=== PATIENT | female | born 1950 | race Caucasian/White ===

== ENCOUNTER 2022-11-05 08:48 | Outpatient (CLI) | payer MEDICARE, OTHER ==
[2022-11-05 12:20] LABS: BASOPHILS # (AUTO) 0.1 K/uL (0.0-0.2); BASOPHILS % (AUTO) 2.7 % (0.0-2.0); EOSINOPHILS % (AUTO) 1.2 % (0.0-6.0); HEMATOCRIT 36 % (33-45); LYMPHOCYTES # (AUTO) 1.2 K/uL (0.8-4.8); LYMPHOCYTES % (AUTO) 35.5 % (20.0-44.0); MEAN CORPUSCULAR HGB CONC 34 g/dl (31.0-36.0); MEAN CORPUSCULAR VOLUME 101 fL (82-100); MONOCYTES # (AUTO) 0.3 K/uL (0.1-1.30); MONOCYTES % (AUTO) 7.2 % (2.0-12.0); NEUTROPHILS # (AUTO) 1.9 K/uL (1.8-8.9); NEUTROPHILS % (AUTO) 53.4 % (43.0-81.0); PLATELET COUNT (AUTO) 182 K/uL (150-450); RED BLOOD CELL COUNT(AUTO) 3.54 MIL/uL (4.0-5.2); WHITE BLOOD COUNT (AUTO) 3.5 K/uL (4.3-11.0)
[2022-11-05 12:28] LABS: BILIRUBIN,URINE NEGATIVE (NEGATIVE); COLOR,URINE YELLOW (YELLOW); LEUKOCYTE ESTERASE ,URINE NEGATIVE (NEGATIVE); NITRITE, URINE NEGATIVE (NEGATIVE); PROTEIN,URINE NEGATIVE (NEGATIVE); UGLUCOSE NEGATIVE (NEGATIVE); UROBILINOGEN,URINE 0.2 EU/dL (0.2)
[2022-11-05 12:44] LABS: POTASSIUM 4.5 mmol/L (3.5-5.1)
[2022-11-07] MEDS ORDERED: PALB125T PO (12:38)
[2022-11-07] MEDS ORDERED: OLME20TA23 PO (12:38)
[2022-11-07] MEDS ORDERED: HYDR-3980 PO (12:38)
[2022-11-07] MEDS ORDERED: POTA20TA83 PO (12:38)
[2022-11-07] MEDS ORDERED: GABA800T11 PO (12:38)
[2022-11-07] MEDS ORDERED: OMEP1CAP25 PO (12:38)
[2022-11-07] MEDS ORDERED: ALPR1TAB7 PO (12:38)
[2022-11-07] MEDS ORDERED: AMOX1TAB16 PO (12:38)
== END 2022-11-05 23:59 | disposition home or self-care (01) ==
LOC: RAD 08:48
PROVIDERS: ATTEND Internal Medicine Pulmonary Disease
DX: Z01.818 Encounter for other preprocedural examination (principal); I70.0 Atherosclerosis of aorta
CPT/HCPCS: 36415; 71045-TC; 80048-TC; 85025-TC; 85730-TC